=== PATIENT | male | born 1980 | race Caucasian/White ===

== ENCOUNTER 2020-11-15 07:39 | Day surgery (SDC) | payer OTHER ==
[~2020-11-15] VITALS: Ht 172.7 cm; Wt 81.6 kg
[2020-11-15] VITALS (8 sets, daily range): BP systolic 109–160; BP diastolic 68–110
--- NOTE | 2020-11-15 07:45 | NUR ---
PATIENT ARRIVED TO ROOM ESCORTED BY ANR NURSE JOYA. ROUNDSMAN DONE SEE INTERVENTIONS. ROOM SAFETY GONE OVER WITH PATIENT. VITAL SIGNS TAKEN SEE INTERVENTION. LUNGS CLEAR. SIDERAILS ARE UP X 2 CALL LIGHT WITHIN REACH.
--- NOTE | 2020-11-15 08:00 | NUR ---
DR. HERNANDEZ IN TO SEE PATIENT AT THIS TIME.
--- NOTE | 2020-11-15 08:30 | NUR ---
DR. SLOAN IN TO SEE PATIENT AT THIS TIME.
--- NOTE | 2020-11-15 12:01 | NUR ---
PATIENT RESTING IN BED AT THIS TIME. PATIENT DENIES ANY NEEDS AND IS WAITING ON ANR PROCEEDURE.
--- NOTE | 2020-11-15 14:00 | NUR ---
PATIENT REMAINS IN ANR PROCEEDURE
[2020-11-15 16:28] LABS: HEMATOCRIT 53.7 % (39.0-50.0); HEMOGLOBIN 17.7 g/dl (14.0-18.0); IMMATURE GRANULOCYTES 0.1 % (0.0-5.0); MEAN CELL VOLUME 95.4 fL CALC (80.0-100.0); MEAN CORPUSCULAR HGB 31.4 pG CALC (26.0-32.0); NEUT# 5.45 thou/uL (1.82-7.42); RED BLOOD COUNT 5.63 mill/uL (4.70-6.10); RED CELL DISTRI WIDTH 12.3 % (11.5-15.5)
[2020-11-15 16:31] LABS: ALBUMIN 4.7 g/dL (3.2-5.0); ALKALINE PHOSPHATASE 81 u/l (38-126); ANION GAP 14 (6-22 (CALC)); BILIRUBIN, TOTAL 0.9 mg/dL (0.0-1.4); BUN 23 mg/dL (9-20); BUN/CREATININE RATIO 20 (12-20 (CALC)); CARBON DIOXIDE 24 mmol/l (22-30); CHLORIDE 103 mmol/l (95-108); CREATININE 1.1 mg/dL (0.7-1.3); GFR > 60 ML/MIN (>=60 (CALC)); GFR FOR AFR.AMER. > 60 ML/MIN (>=60 (CALC)); POTASSIUM 3.8 mmol/l (3.5-5.1); SGOT/AST 93 u/l (17-59); SODIUM 137 mmol/l (137-146); TOTAL PROTEIN 8.2 g/dL (6.3-8.2)
[2020-11-16 00:16] VITALS: BP 132/76
[2020-11-16 04:00] VITALS: BP 128/81
[2020-11-16 06:43] LABS: ALBUMIN 4.5 g/dL (3.2-5.0); ALKALINE PHOSPHATASE 70 u/l (38-126); ANION GAP 16 (6-22 (CALC)); BUN 15 mg/dL (9-20); BUN/CREATININE RATIO 15 (12-20 (CALC)); CARBON DIOXIDE 20 mmol/l (22-30); CHLORIDE 105 mmol/l (95-108); GFR > 60 ML/MIN (>=60 (CALC)); GFR FOR AFR.AMER. > 60 ML/MIN (>=60 (CALC)); POTASSIUM 4.1 mmol/l (3.5-5.1); SGOT/AST 41 u/l (17-59); SODIUM 137 mmol/l (137-146); TOTAL PROTEIN 7.5 g/dL (6.3-8.2)
--- NOTE | 2020-11-16 06:52 | NUR ---
PATIENT LAYING IN BED AT THIS TIME PATIENT ALERT AND ORIENTED AND ANR NURSE AT BEDSIDE. HASH SLINGER DONE AT THIS TIME SEE INTERVENTIONS
[2020-11-16 07:44] VITALS: BP 171/72
--- NOTE | 2020-11-16 11:45 | NUR ---
PATIENT LAYING IN BED RESPONSIVE TO QUESTIONS AND STATES HE JUST WANTS TO SLEEP. PATIENT OFFERED LUNCH TRAY AND PATIENT DENIED AT THIS TIME. SIDERAILS ARE UP CALL LIGHT NEAR.
[2020-11-16 12:18] VITALS: BP 133/92
--- NOTE | 2020-11-16 12:27 | NUR ---
THIS NURSE REACH OUT TO DR. HERNANDEZ AT THIS TIME DUE TO ABNORMAL VITAL SIGNS. LEFT MESSAGE TO CALL WENT TO TRAUMA ROOM TO SPEAK TO ANR NURSES AT THIS TIME REGARDING HOW TO GET A HOLD OF DR. MARY JOYA ANR RN STATED DR. HERNANDEZ IS OFF SITE SEEING A PATIENT AT THIS TIME AND THAT HE WILL TRY AND REACH HIM.
--- NOTE | 2020-11-16 13:05 | NUR ---
DR. HERNANDEZ CALLED BACK AND ORDERS OBTAINED.
--- NOTE | 2020-11-16 14:00 | NUR ---
3 PRESCRIPTION SCRIPTS PULLED FROM [facility], PER DR HERNANDEZ'S VERBAL ORDERS FOR D/C MEDICATION SCRIPTS
--- NOTE | 2020-11-16 15:15 | NUR ---
PATIENT UP TO SHOWER AT THIS TIME WITH THE ASSISTANCE OF NURSE KEVIN AND NATE RN'S PATIENT HAD NO ISSUES AND WAS COOPERATIVE AT THIS TIME. PATIENT ASSISTED IN SHOWER AND DID OWN CARE IN SHOWER. PATIENT WALKED TO BEDSIDE COUCH AND FULLY DRESSED ONES SELF. PATIENT GIVEN 1 BOTTLE OF GATORADE PATIENT DENIES ANY PAIN PATIENT JUST STATES HE'S "SLEEPY". WILL CONTINUE TO MONITOR.
--- NOTE | 2020-11-16 16:29 | NUR ---
PATIENT D/C AT THIS TIME VERBALIZES D/C INSTRUCTION AT THIS TIME. IV REMOVED SEE INTERVENTION.
--- NOTE | 2020-11-16 17:54 | NUR ---
PATIENT BEING D/C AT THIS TIME. PERSONAL BELONGING TAKEN BY PATIENT AND PATIENT BEING ESCORTED BY MAHNAZ STORM.
== END 2020-11-16 17:57 | disposition home or self-care (01) | DRG 897 ==
LOC: ANR 07:39 → MS2 07:42 → ANR 11:15
PROVIDERS: Nurse Practitioner; ATTEND Anesthesiology
DX: F11.20 Opioid dependence, uncomplicated (principal)
CPT/HCPCS: J2060; J2354